=== PATIENT | female | born 1975 | race African-American/Black ===

== ENCOUNTER 2018-12-26 15:23 | Inpatient (IN) | payer OTHER ==
[2018-12-26 15:46] VITALS: BMI 18.8
--- NOTE | 2018-12-26 17:08 | HP ---
CIWA Score Nausea/Vomitin-No Nausea/No Vomiting Muscle Tremors: 4-Moderate,w/Arms Extend Anxiety: 4-Mod. Anxious/Guarded Agitation: 3 Paroxysmal Sweats: 3 (Increased facial moisture) Orientation: 0-Oriented Tacttile Disturbances: 0-None Auditory Disturbances: 0-None Visual Disturbances: 0-None Headache: 2-Mild CIWA-Ar Total Score: 16 - Admission Criteria OASAS Guidelines: Admission for Medically Managed Detox: Requires at least one of the followin. CIWA greater than 12 2. Seizures within the past 24 hours 3. Delirium tremens within the past 24 hours 4. Hallucinations within the past 24 hours 5. Acute intervention needed for co occurring medical disorder 6. Acute intervention needed for co occurring psychiatric disorder 7. Severe withdrawal that cannot be handled at a lower level of care (continued vomiting, continued diarrhea, abnormal vital signs) requiring intravenous medication and/or fluids 8. Patient presents the following: CIWA greater than 12 Admission Criteria Met: Admission criteria met Admission ROS S - [facility] Chief Complaint: Here to stop drugs Allergies/Adverse Reactions: Allergies Allergy/AdvReac Type Severity Reaction Status Date / Time No Known Allergies Allergy Verified 12/26/18 15:35 History of Present Illness: 43 yo presents alcohol withdrawal seeking detox. RUBEN: 0.0 HCG: Neg Utox: + THC/SHAHZAD Alcohol use began at age 14. Current use is 4-5 24 oz beers/day x 3 years. States gets anxiety and sweats when doesn't drink. Crack use began at age 24. Currently using $100+/day x 2 years Marijuana use began at age 14. Smokes 1-2 x/wk sometimes more. Nicotine @ 12. 1+ PPD Denies seizures, blackouts, overdoses. PMHx: Toothache; Fibroids w/ endometriosis; MHHx: Depression. Denies thoughts of harming self or others. SHx: Domiciled. Unemployed. Denies current legals. 9 years of sobriety ended in 2017. Search Terms: Drea Manley, 1975 Search Date: 12/26/2018 05:07:26 PM The Drug Utilization Report below displays all of the controlled substance prescriptions, if any, that your patient has filled in the last twelve months. The information displayed on this report is compiled from pharmacy submissions to the Department, and accurately reflects the information as submitted by the pharmacies. This report was requested by: Estella Enrique | Reference #: [id number] There are no results for the search terms that you entered. Exam Limitations: No Limitations - Ebola screening Have you traveled outside of the country in the last 21 days: No Have you had contact with anyone from an Ebola affected area: No Have you been sick,other than usual withdrawal symptoms: No Do you have a fever: No - Review of Systems Constitutional: Changes in sleep (Difficulty falling and stayinf asleep. No meds ), Unintentional Wgt. Loss EENT: reports: Blurred Vision, Dental Problems (Tooth ache.) Respiratory: reports: SOB with Exertion (Walking and climbing stairs) Cardiac: reports: No Symptoms Reported GI: reports: Constipated (Intermittent. Last BM 12/25), Indigestion (Heart burn) : reports: No Symptoms Reported Musculoskeletal: reports: Back Pain (Intermittent sharp back pain. Increases w/ walking. "0" now) Integumentary: reports: Lesions (On fingertips from smoking) Neuro: reports: Headache (Frontal achy headache) Endocrine: reports: Increased Thirst Hematology: reports: Anemia (Non compliant w/ iron pills), Easy Bleeding (when gets period) Psychiatric: reports: Orientated x3, Agitated, Anxious, Depressed (Denies thoughts of harming self or others.) Patient History - PPD History Previous Implant?: Yes Documented Results: Negative w/o proof Implanted On Prior R Admission?: No PPD to be Administered?: Yes - Reproductive History Patient is a Female of Child Bearing Age (11 -55 yrs old): Yes Last Menstrual Period: 11/28/18 Patient : No - Smoking Cessation Smoking history: Current every day smoker Have you smoked in the past 12 months: Yes Aproximately how many cigarettes per day: 20 Hx Chewing Tobacco Use: No Initiated information on smoking cessation: Yes 'Breaking Loose' booklet given: 12/26/18 - Substance & Tx. History Hx Alcohol Use: Yes Hx Substance Use: Yes Substance Use Type: Alcohol, Cocaine (Crack), Marijuana - Substances abused Alcohol Substance route: Oral Frequency: Daily Amount used: 6-7 beers Age of first use: 14 Date of last use: 12/26/18 Marijuana/Hashish Substance route: Smoking Frequency: 1-2 times per week Amount used: 2 joints Age of first use: 14 Date of last use: 12/26/18 Other Other (specify): vicodin Substance route: Oral Frequency: Daily Amount used: 1-2 pills Age of first use: 34 Date of last use: 12/19/18 Crack Substance route: Smoking Frequency: Daily Amount used: $100 Age of first use: 24 Date of last use: 12/26/18 Admission Physical Exam S - Vital Signs Vital Signs: Vital Signs - 24 hr 12/26/18 15:34 Temperature 97.2 F L Pulse Rate 79 Respiratory 18 Rate Blood Pressure 113/75 - Physical General Appearance: Yes: Mild Distress, Thin, Tremorous, Irritable, Sweating ( Increased facial moisture), Anxious HEENTM: Yes: Hearing grossly Normal, Normocephalic, Normal Voice, LESLIE, Pharynx Normal, Nasal Congestion, Other (Broken/missing teeth) Respiratory: Yes: Lungs Clear (Pulse Ox = 99 %), Normal Breath Sounds, No Respiratory Distress Neck: Yes: No masses,lesions,Nodules, Supple Breast: Yes: Breast Exam Deferred Cardiology: Yes: Regular Rhythm, Regular Rate (HR: 68), S1, S2 Abdominal: Yes: Non Tender, Flat, Soft, Increased Bowel Sounds Genitourinary: Yes: Within Normal Limits Back: Yes: Normal Inspection Musculoskeletal: Yes: full range of Motion, Gait Steady Extremities: Yes: Normal Capillary Refill, Tremors (Gross) Neurological: Yes: 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 intact, Fully Oriented, Alert, Motor Strength 5/5 Integumentary: Yes: Normal Color, Warm, Other (Cracked, healed marcos on fingertips) Lymphatic: Yes: Within Normal Limits - Diagnostic (1) Alcohol dependence with withdrawal, uncomplicated Current Visit: Yes Status: Acute (2) Cocaine dependence, uncomplicated Current Visit: Yes Status: Chronic (3) Nicotine dependence, unspecified, uncomplicated Current Visit: Yes Status: Chronic Qualifiers: Nicotine product type: cigarettes Qualified Code(s): F17.210 - Nicotine dependence, cigarettes, uncomplicated (4) History of endometriosis Current Visit: Yes Status: Chronic (5) Cannabis dependence, uncomplicated Current Visit: Yes Status: Chronic (6) Underweight due to inadequate caloric intake Current Visit: Yes Status: Chronic (7) Poor dentition Current Visit: Yes Status: Chronic (8) At risk for dehydration due to poor fluid intake Current Visit: Yes Status: Chronic Cleared for Admission [facility] - Detox or Rehab [facility] Level of Care: Medically Managed Detox Regimen/Protocol: Librium Claeared for Rehab Admission: No Breathalyzer - Breathalyzer Breathalyzer: 0 Urine Drug Screen - Test Device Lot number: [id number] Expiration date: 08/24/20 - Control Is test valid?: No - Results Drug screen NEGATIVE: No Urine drug screen results: THC-Marijuana, SHAHZAD-Cocaine Inpatient Rehab Admission - Rehab Decision to Admit Inpatient rehab admission?: No
[2018-12-26] MEDS ORDERED: ACETAMINOPHEN 325 MG TABLET (FP) PO PRN (18:43)
[2018-12-26] MEDS ORDERED: MAGNESIUM HYDROX 2400MG/30ML ORAL SUSPENSION 30 ML CUP PO PRN (18:43)
[2018-12-26] MEDS ORDERED: MENTHOL/PHENOL 1 EACH UD MM PRN (18:43)
[2018-12-26] MEDS ORDERED: NICOTINE POLACRILEX 2 MG GUM BUC PRN (18:43)
[2018-12-26] MEDS ORDERED: MAG HYDROX/AL HYDROX/SIMETH 30 ML UNIT-DOSE CUP PO PRN (18:43)
[2018-12-26] MEDS ORDERED: BISMUTH SUBSALICYLATE 524 MG/30 ML UD PO PRN (18:43)
[2018-12-26] MEDS ORDERED: MAGNESIUM CITRATE 300 ML BOTTLE PO PRN (18:43)
[2018-12-26] MEDS ORDERED: BENZOCAINE 20 % GEL TUBE MM PRN (18:46)
[2018-12-26] MEDS ORDERED: POLYETHYLENE GLYCOL 3350 119 GM BTL PO ONE (18:48)
[2018-12-26] MEDS: chlordiazePOXIDE HCL 10 MG CAPSULE PO PRN (20:01)
[2018-12-26] MEDS: IBUPROFEN 400 MG TABLET (FP) PO PRN (20:02)
[2018-12-26] MEDS: THIAMINE HCL 100 MG TABLET (FP) PO SCH (21:32)
[2018-12-26] MEDS: chlordiazePOXIDE HCL 25 MG CAPSULE PO SCH (21:32)
[2018-12-26] MEDS: DOCUSATE SODIUM 100 MG CAPSULE (FP) PO SCH (21:41)
[2018-12-27] MEDS: DOCUSATE SODIUM 100 MG CAPSULE (FP) PO SCH ×3 (05:50→22:44)
[2018-12-27] MEDS: chlordiazePOXIDE HCL 25 MG CAPSULE PO SCH ×3 (05:50→22:43)
[2018-12-27] MEDS: IBUPROFEN 400 MG TABLET (FP) PO PRN ×3 (06:45→18:52)
[2018-12-27 09:50] LABS: HEMATOCRIT 31.1 % (32.4-45.2); HEMOGLOBIN 9.4 GM/dL (10.7-15.3); MCHC 30.2 g/dl (32.0-36.0); MEAN CELL VOLUME 63.4 fl (80-96); MEAN PLT VOLUME 7.7 fl (7.5-11.1); PLATELET COUNT 496 K/MM3 (134-434); RBC 4.91 M/mm3 (3.60-5.2); RDW 21.4 % (11.6-15.6); WHITE BLOOD COUNT 8.3 K/mm3 (4.0-10.0)
[2018-12-27 09:56] LABS: MCH 19.1 pg (25.7-33.7)
[2018-12-27] MEDS: PRENATAL VITAMINS W/ FOLIC ACID TABLET (FP) PO SCH (10:36)
[2018-12-27] MEDS: NICOTINE 21 MG/24 HOURS TOPICAL PATCH TD SCH (10:36)
[2018-12-27 10:40] LABS: ALBUMIN 3.3 g/dl (3.4-5.0); BILIRUBIN,TOTAL 0.3 mg/dL (0.2-1); BLOOD UREA NITROGEN 20.7 mg/dL (7-18); CALCIUM 8.7 mg/dL (8.5-10.1); POTASSIUM 4.6 mmol/L (3.5-5.1); TOT PROT 6.9 g/dl (6.4-8.2)
[2018-12-27] MEDS ORDERED: PNEUMOCOCCAL 23 VACCINE 0.5 ML VIAL IM ONE (12:00)
[2018-12-27] MEDS ORDERED: PNEUMOC 13-VAL CONJ-DIP CRM/PF 0.5 ML DISP.SYRIN IM ONE (12:00)
[2018-12-27] MEDS ORDERED: FLU VACCINE QUAD 60 MCG/0.5 ML (MDV 19-20) IM ONE (12:00)
--- NOTE | 2018-12-27 12:47 | PN ---
S CIWA - CIWA Score Nausea/Vomitin-No Nausea/No Vomiting Muscle Tremors: 2 Anxiety: 3 Agitation: 2 Paroxysmal Sweats: 3 Orientation: 0-Oriented Tacttile Disturbances: 0-None Auditory Disturbances: 0-None Visual Disturbances: 0-None Headache: 2-Mild CIWA-Ar Total Score: 12 S Progress Note (SOAP) Subjective: c/o sweats, anxiety, headache, and shakes. Objective: 12/27/18 12:45 Vital Signs 12/27/18 12/27/18 06:16 09:11 Temperature 97.3 F L 97.6 F Pulse Rate 72 74 Respiratory 18 18 Rate Blood Pressure 142/97 110/65 Lab Results WBC 8.3 K/mm3 (4.0-10.0) 12/27/18 07:45 RBC 4.91 M/mm3 (3.60-5.2) 12/27/18 07:45 Hgb 9.4 GM/dL (10.7-15.3) L 12/27/18 07:45 Hct 31.1 % (32.4-45.2) L 12/27/18 07:45 MCV 63.4 fl (80-96) L 12/27/18 07:45 MCHC 30.2 g/dl (32.0-36.0) L 12/27/18 07:45 RDW 21.4 % (11.6-15.6) H 12/27/18 07:45 Plt Count 496 K/MM3 (134-434) H 12/27/18 07:45 Sodium 138 mmol/L (136-145) 12/27/18 07:45 Potassium 4.6 mmol/L (3.5-5.1) 12/27/18 07:45 Chloride 108 mmol/L (98-107) H 12/27/18 07:45 Carbon Dioxide 24 mmol/L (21-32) 12/27/18 07:45 Anion Gap 6 MMOL/L (8-16) L 12/27/18 07:45 BUN 20.7 mg/dL (7-18) H 12/27/18 07:45 Creatinine 1.0 mg/dL (0.55-1.3) 12/27/18 07:45 Random Glucose 119 mg/dL (74-106) H 12/27/18 07:45 Calcium 8.7 mg/dL (8.5-10.1) 12/27/18 07:45 Labs noted with low H&H, MCV, MCHC Elevated RDW and Plt count. Assessment: 12/27/18 12:48 AOX3, in no acute respiratory distress. Full ROM, ambulating in the unit. Withdrawal symptoms. CHILO. Plan: continue detox. ferrous sulfate 325mg po 3times/day Ascorbic acid 500mg po daily.
[2018-12-27] MEDS: ASCORBIC ACID 500 MG TABLET (FP) PO SCH (13:22)
[2018-12-27] MEDS: FERROUS SO4 325 MG TABLET (FP) PO SCH (17:56)
[2018-12-27] MEDS: chlordiazePOXIDE HCL 10 MG CAPSULE PO PRN (18:00)
[2018-12-27] MEDS: ACETAMINOPHEN 325 MG TABLET (FP) PO PRN (22:43)
[2018-12-27] MEDS: THIAMINE HCL 100 MG TABLET (FP) PO SCH (22:44)
[2018-12-27] MEDS: MELATONIN 5 MG TABLETS PO PRN (23:35)
[2018-12-28] MEDS: IBUPROFEN 400 MG TABLET (FP) PO PRN ×3 (03:04→19:09)
[2018-12-28] MEDS: chlordiazePOXIDE 5 MG CAPSULE PO SCH ×3 (06:16→20:24)
[2018-12-28] MEDS: DOCUSATE SODIUM 100 MG CAPSULE (FP) PO SCH ×3 (06:17→22:01)
[2018-12-28] MEDS: FERROUS SO4 325 MG TABLET (FP) PO SCH ×3 (08:34→19:08)
--- NOTE | 2018-12-28 09:10 | PN ---
[facility] CIWA - CIWA Score Nausea/Vomitin-Mild Nausea/No Vomiting Muscle Tremors: 2 Anxiety: 3 Agitation: 1-Slight > Activity Paroxysmal Sweats: 2 Orientation: 1-Uncertain about Date Tacttile Disturbances: 0-None Auditory Disturbances: 0-None Visual Disturbances: 0-None Headache: 0-None Present CIWA-Ar Total Score: 10 S Progress Note (SOAP) Subjective: 43 years old female admitted on 12/26/18 for alcohol withdrawal sx management treated with librium detox regimen patient tolerate well requests to be seen by a psychiatrist for long history of depression and anxiety psychiatrist referral [facility] teaching on sleep hygiene Objective: 12/28/18 09:09 Vital Signs Temperature 97.7 F 12/28/18 06:11 Pulse Rate 70 12/28/18 06:11 Respiratory Rate 16 12/28/18 06:11 Blood Pressure 108/64 12/28/18 06:11 O2 Sat by Pulse Oximetry (%) Laboratory Last Values WBC 8.3 K/mm3 (4.0-10.0) 12/27/18 07:45 RBC 4.91 M/mm3 (3.60-5.2) 12/27/18 07:45 Hgb 9.4 GM/dL (10.7-15.3) L 12/27/18 07:45 Hct 31.1 % (32.4-45.2) L 12/27/18 07:45 MCV 63.4 fl (80-96) L 12/27/18 07:45 MCH 19.1 pg (25.7-33.7) L 12/27/18 07:45 MCHC 30.2 g/dl (32.0-36.0) L 12/27/18 07:45 RDW 21.4 % (11.6-15.6) H 12/27/18 07:45 Plt Count 496 K/MM3 (134-434) H 12/27/18 07:45 MPV 7.7 fl (7.5-11.1) 12/27/18 07:45 Sodium 138 mmol/L (136-145) 12/27/18 07:45 Potassium 4.6 mmol/L (3.5-5.1) 12/27/18 07:45 Chloride 108 mmol/L (98-107) H 12/27/18 07:45 Carbon Dioxide 24 mmol/L (21-32) 12/27/18 07:45 Anion Gap 6 MMOL/L (8-16) L 12/27/18 07:45 BUN 20.7 mg/dL (7-18) H 12/27/18 07:45 Creatinine 1.0 mg/dL (0.55-1.3) 12/27/18 07:45 Est GFR (CKD-EPI)AfAm 78.79 12/27/18 07:45 Est GFR (CKD-EPI)NonAf 67.98 12/27/18 07:45 Random Glucose 119 mg/dL (74-106) H 12/27/18 07:45 Calcium 8.7 mg/dL (8.5-10.1) 12/27/18 07:45 Total Bilirubin 0.3 mg/dL (0.2-1) 12/27/18 07:45 AST 32 U/L (15-37) 12/27/18 07:45 ALT 33 U/L (13-61) 12/27/18 07:45 Alkaline Phosphatase 112 U/L (45-117) 12/27/18 07:45 Total Protein 6.9 g/dl (6.4-8.2) 12/27/18 07:45 Albumin 3.3 g/dl (3.4-5.0) L 12/27/18 07:45 RPR Titer Nonreactive (NONREACTIVE) 12/27/18 07:45 lab noted Assessment: 12/28/18 09:09 alcohol withdrawal sx depression and anxiety Plan: continue librium detox regimen
[2018-12-28] MEDS: PRENATAL VITAMINS W/ FOLIC ACID TABLET (FP) PO SCH (10:19)
[2018-12-28] MEDS: NICOTINE 21 MG/24 HOURS TOPICAL PATCH TD SCH (10:19)
[2018-12-28] MEDS: ASCORBIC ACID 500 MG TABLET (FP) PO SCH (10:19)
[2018-12-28] MEDS: chlordiazePOXIDE HCL 10 MG CAPSULE PO PRN ×2 (10:22→17:15)
[2018-12-28] MEDS: MELATONIN 5 MG TABLETS PO PRN (20:26)
[2018-12-28] MEDS: THIAMINE HCL 100 MG TABLET (FP) PO SCH (22:01)
[2018-12-29] MEDS ORDERED: chlordiazePOXIDE HCL 10 MG CAPSULE PO PRN
[2018-12-29] MEDS: IBUPROFEN 400 MG TABLET (FP) PO PRN ×3 (02:52→22:08)
[2018-12-29] MEDS: ACETAMINOPHEN 325 MG TABLET (FP) PO PRN ×2 (05:31→16:50)
[2018-12-29] MEDS: chlordiazePOXIDE HCL 10 MG CAPSULE PO SCH ×3 (05:31→22:05)
[2018-12-29] MEDS: DOCUSATE SODIUM 100 MG CAPSULE (FP) PO SCH ×3 (05:32→22:05)
[2018-12-29] MEDS: FERROUS SO4 325 MG TABLET (FP) PO SCH ×3 (07:21→17:44)
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
[2018-12-29] MEDS: hydrOXYzine PAMOATE 50 MG CAPSULE (FP) PO PRN ×3 (09:33→22:07)
[2018-12-29 09:47] LABS: EPI CELLS 5.5 /HPF (0-5/HPF); HYALINE CASTS 5 /lpf (0-8); URINE APPEARANCE CLOUDY; URINE BILIRUBIN NEGATIVE (NEGATIVE); URINE COLOR ORANGE; URINE GLUCOSE (UA) NEGATIVE (NEGATIVE); URINE KETONE NEGATIVE (NEGATIVE); URINE LEUK ESTERASE 2+ (NEGATIVE); URINE NITRITE NEGATIVE (NEGATIVE); URINE PROTEIN 1+ (NEGATIVE); URINE RBC 4329 /hpf (0-4); URINE UROBILINOGEN 0.2 mg/dL (0.2-1.0); URINE WBC 17 /hpf (0-5)
[2018-12-29] MEDS: PRENATAL VITAMINS W/ FOLIC ACID TABLET (FP) PO SCH (10:40)
[2018-12-29] MEDS: ASCORBIC ACID 500 MG TABLET (FP) PO SCH (10:40)
[2018-12-29] MEDS: NICOTINE 21 MG/24 HOURS TOPICAL PATCH TD SCH (10:41)
--- NOTE | 2018-12-29 11:05 | EKG ---
Test Reason : Blood Pressure : / mmHG Vent. Rate : 070 BPM Atrial Rate : 070 BPM P-R Int : 140 ms QRS Dur : 082 ms QT Int : 426 ms P-R-T Axes : 077 058 055 degrees QTc Int : 460 ms NORMAL SINUS RHYTHM WITH SINUS ARRHYTHMIA NORMAL ECG WHEN COMPARED WITH ECG OF 06-MAY-2008 08:50, NO SIGNIFICANT CHANGE WAS FOUND Confirmed by SAVANNAH PLUMMER MD ([id number]) on 12/29/2018 11:04:47 AM Referred By: Confirmed By:SAVANNAH PLUMMER MD
--- NOTE | 2018-12-29 15:10 | PN ---
S CIWA - CIWA Score Nausea/Vomitin-No Nausea/No Vomiting Muscle Tremors: 2 Anxiety: 1-Mildly Anxious Agitation: 1-Slight > Activity Paroxysmal Sweats: 1-Minimal Palms Moist Orientation: 0-Oriented Tacttile Disturbances: 0-None Auditory Disturbances: 0-None Visual Disturbances: 0-None Headache: 0-None Present CIWA-Ar Total Score: 5 BHS Progress Note (SOAP) Subjective: 43 years old female admitted on 12/26/18 for alcohol withdrawal sx management treated with librium detox regimen patient tolerated well feeling better sleep through out the night Objective: 12/29/18 15:09 Vital Signs Temperature 97.3 F L 12/29/18 13:20 Pulse Rate 76 12/29/18 13:20 Respiratory Rate 16 12/29/18 13:20 Blood Pressure 106/60 12/29/18 13:20 O2 Sat by Pulse Oximetry (%) Laboratory Last Values WBC 8.3 K/mm3 (4.0-10.0) 12/27/18 07:45 RBC 4.91 M/mm3 (3.60-5.2) 12/27/18 07:45 Hgb 9.4 GM/dL (10.7-15.3) L 12/27/18 07:45 Hct 31.1 % (32.4-45.2) L 12/27/18 07:45 MCV 63.4 fl (80-96) L 12/27/18 07:45 MCH 19.1 pg (25.7-33.7) L 12/27/18 07:45 MCHC 30.2 g/dl (32.0-36.0) L 12/27/18 07:45 RDW 21.4 % (11.6-15.6) H 12/27/18 07:45 Plt Count 496 K/MM3 (134-434) H 12/27/18 07:45 MPV 7.7 fl (7.5-11.1) 12/27/18 07:45 Sodium 138 mmol/L (136-145) 12/27/18 07:45 Potassium 4.6 mmol/L (3.5-5.1) 12/27/18 07:45 Chloride 108 mmol/L (98-107) H 12/27/18 07:45 Carbon Dioxide 24 mmol/L (21-32) 12/27/18 07:45 Anion Gap 6 MMOL/L (8-16) L 12/27/18 07:45 BUN 20.7 mg/dL (7-18) H 12/27/18 07:45 Creatinine 1.0 mg/dL (0.55-1.3) 12/27/18 07:45 Est GFR (CKD-EPI)AfAm 78.79 12/27/18 07:45 Est GFR (CKD-EPI)NonAf 67.98 12/27/18 07:45 Random Glucose 119 mg/dL (74-106) H 12/27/18 07:45 Calcium 8.7 mg/dL (8.5-10.1) 12/27/18 07:45 Total Bilirubin 0.3 mg/dL (0.2-1) 12/27/18 07:45 AST 32 U/L (15-37) 12/27/18 07:45 ALT 33 U/L (13-61) 12/27/18 07:45 Alkaline Phosphatase 112 U/L (45-117) 12/27/18 07:45 Total Protein 6.9 g/dl (6.4-8.2) 12/27/18 07:45 Albumin 3.3 g/dl (3.4-5.0) L 12/27/18 07:45 Urine Color [place] 12/29/18 08:00 Urine Appearance Cloudy 12/29/18 08:00 Urine pH 5.0 (5.0-8.0) 12/29/18 08:00 Ur Specific [place] 1.014 (1.010-1.035) 12/29/18 08:00 Urine Protein 1+ (NEGATIVE) H 12/29/18 08:00 Urine Glucose (UA) Negative (NEGATIVE) 12/29/18 08:00 Urine Ketones Negative (NEGATIVE) 12/29/18 08:00 Urine Blood 3+ (NEGATIVE) H 12/29/18 08:00 Urine Nitrite Negative (NEGATIVE) 12/29/18 08:00 Urine Bilirubin Negative (NEGATIVE) 12/29/18 08:00 Urine Urobilinogen 0.2 mg/dL (0.2-1.0) 12/29/18 08:00 Ur Leukocyte Esterase 2+ (NEGATIVE) H 12/29/18 08:00 Urine WBC (Auto) 17 /hpf (0-5) 12/29/18 08:00 Urine RBC (Auto) 4329 /hpf (0-4) 12/29/18 08:00 Urine Casts (Auto) 5 /lpf (0-8) 12/29/18 08:00 U Epithel Cells (Auto) 5.5 /HPF (0-5/HPF) 12/29/18 08:00 Urine Bacteria (Auto) 5.0 /hpf (NEGATIVE) 12/29/18 08:00 POC Urine HCG, Qual Negative 12/26/18 16:32 RPR Titer Nonreactive (NONREACTIVE) 12/27/18 07:45 lab noted Assessment: 12/29/18 15:10 alcohol withdrawal sx Plan: continue librium detox regimen
[2018-12-29] MEDS: THIAMINE HCL 100 MG TABLET (FP) PO SCH (22:05)
[2018-12-29] MEDS: MELATONIN 5 MG TABLETS PO PRN (22:10)
[2018-12-30] MEDS ORDERED: chlordiazePOXIDE HCL 10 MG CAPSULE PO ONE (05:00)
[2018-12-30] MEDS: DOCUSATE SODIUM 100 MG CAPSULE (FP) PO SCH (06:08)
[2018-12-30] MEDS: FERROUS SO4 325 MG TABLET (FP) PO SCH ×2 (07:28→11:47)
--- NOTE | 2018-12-30 09:06 | DS ---
[facility] Detox Discharge Summary Admission Date: 12/26/18 Discharge Date: 12/30/18 - History Present History: Alcohol Dependence Additional Comments: 43 years old female admitted on 12/26/18 for alcohol withdrawal sx management treated with librium detox regimen patient tolerated well patient is alert oriented x 3 speech clearly coherently respiratory clear lung bilaterally on Auscultation abdomen soft no rebound tenderness extremities full range of motion - Physical Exam Results Vital Signs: Vital Signs Temperature 97.1 F L 12/30/18 06:23 Pulse Rate 67 12/30/18 06:23 Respiratory Rate 16 12/30/18 06:23 Blood Pressure 98/57 L 12/30/18 06:23 O2 Sat by Pulse Oximetry (%) Pertinent Admission Physical Exam Findings: alcohol withdrawal sx Laboratory Last Values WBC 8.3 K/mm3 (4.0-10.0) 12/27/18 07:45 RBC 4.91 M/mm3 (3.60-5.2) 12/27/18 07:45 Hgb 9.4 GM/dL (10.7-15.3) L 12/27/18 07:45 Hct 31.1 % (32.4-45.2) L 12/27/18 07:45 MCV 63.4 fl (80-96) L 12/27/18 07:45 MCH 19.1 pg (25.7-33.7) L 12/27/18 07:45 MCHC 30.2 g/dl (32.0-36.0) L 12/27/18 07:45 RDW 21.4 % (11.6-15.6) H 12/27/18 07:45 Plt Count 496 K/MM3 (134-434) H 12/27/18 07:45 MPV 7.7 fl (7.5-11.1) 12/27/18 07:45 Sodium 138 mmol/L (136-145) 12/27/18 07:45 Potassium 4.6 mmol/L (3.5-5.1) 12/27/18 07:45 Chloride 108 mmol/L (98-107) H 12/27/18 07:45 Carbon Dioxide 24 mmol/L (21-32) 12/27/18 07:45 Anion Gap 6 MMOL/L (8-16) L 12/27/18 07:45 BUN 20.7 mg/dL (7-18) H 12/27/18 07:45 Creatinine 1.0 mg/dL (0.55-1.3) 12/27/18 07:45 Est GFR (CKD-EPI)AfAm 78.79 12/27/18 07:45 Est GFR (CKD-EPI)NonAf 67.98 12/27/18 07:45 Random Glucose 119 mg/dL (74-106) H 12/27/18 07:45 Calcium 8.7 mg/dL (8.5-10.1) 12/27/18 07:45 Total Bilirubin 0.3 mg/dL (0.2-1) 12/27/18 07:45 AST 32 U/L (15-37) 12/27/18 07:45 ALT 33 U/L (13-61) 12/27/18 07:45 Alkaline Phosphatase 112 U/L (45-117) 12/27/18 07:45 Total Protein 6.9 g/dl (6.4-8.2) 12/27/18 07:45 Albumin 3.3 g/dl (3.4-5.0) L 12/27/18 07:45 Urine Color [place] 12/29/18 08:00 Urine Appearance Cloudy 12/29/18 08:00 Urine pH 5.0 (5.0-8.0) 12/29/18 08:00 Ur Specific [place] 1.014 (1.010-1.035) 12/29/18 08:00 Urine Protein 1+ (NEGATIVE) H 12/29/18 08:00 Urine Glucose (UA) Negative (NEGATIVE) 12/29/18 08:00 Urine Ketones Negative (NEGATIVE) 12/29/18 08:00 Urine Blood 3+ (NEGATIVE) H 12/29/18 08:00 Urine Nitrite Negative (NEGATIVE) 12/29/18 08:00 Urine Bilirubin Negative (NEGATIVE) 12/29/18 08:00 Urine Urobilinogen 0.2 mg/dL (0.2-1.0) 12/29/18 08:00 Ur Leukocyte Esterase 2+ (NEGATIVE) H 12/29/18 08:00 Urine WBC (Auto) 17 /hpf (0-5) 12/29/18 08:00 Urine RBC (Auto) 4329 /hpf (0-4) 12/29/18 08:00 Urine Casts (Auto) 5 /lpf (0-8) 12/29/18 08:00 U Epithel Cells (Auto) 5.5 /HPF (0-5/HPF) 12/29/18 08:00 Urine Bacteria (Auto) 5.0 /hpf (NEGATIVE) 12/29/18 08:00 POC Urine HCG, Qual Negative 12/26/18 16:32 RPR Titer Nonreactive (NONREACTIVE) 12/27/18 07:45 lab noted uti hematuria begin bactrim ds - Treatment Hospital Course: Detox Protocol Followed, Detoxed Safely, Responded well, Discharged Condition Good, Rehab Referral Accepted Patient has Accepted a Rehab Referral to: [facility] - Medication Discharge Medications: Ambulatory Orders NK [No Known Home Medication] 12/26/18 - Diagnosis (1) UTI (urinary tract infection) Current Visit: Yes Status: Chronic Qualifiers: Urinary tract infection type: site unspecified Hematuria presence: with hematuria Qualified Code(s): N39.0 - Urinary tract infection, site not specified; R31.9 - Hematuria, unspecified (2) Alcohol dependence with withdrawal, uncomplicated Current Visit: Yes Status: Acute (3) Substance induced mood disorder Current Visit: Yes Status: Suspected (4) Nicotine dependence, unspecified, uncomplicated Current Visit: Yes Status: Acute Qualifiers: Nicotine product type: cigarettes Qualified Code(s): F17.210 - Nicotine dependence, cigarettes, uncomplicated (5) Underweight due to inadequate caloric intake Current Visit: Yes Status: Acute - AMA Did Patient Leave Against Medical Advice: No CIWA Score - CIWA Score Nausea/Vomitin-No Nausea/No Vomiting Muscle Tremors: 1-None Visible, but [place] Anxiety: 0-No Anxiety, at Ease Agitation: 0-Normal Activity Paroxysmal Sweats: No Perspiration Orientation: 0-Oriented Tacttile Disturbances: 0-None Auditory Disturbances: 0-None Visual Disturbances: 0-None Headache: 0-None Present CIWA-Ar Total Score: 1
[2018-12-30] MEDS ORDERED: SULFAMETHOXAZOLE/TRIMETHOPRIM 800MG/160MG D.S. TABLET PO SCH (10:00)
[2018-12-30] MEDS: NICOTINE 21 MG/24 HOURS TOPICAL PATCH TD SCH (11:02)
[2018-12-30] MEDS: PRENATAL VITAMINS W/ FOLIC ACID TABLET (FP) PO SCH (11:02)
[2018-12-30] MEDS: ASCORBIC ACID 500 MG TABLET (FP) PO SCH (11:02)
[2018-12-30] MEDS: hydrOXYzine PAMOATE 50 MG CAPSULE (FP) PO PRN (11:04)
[2018-12-30] MEDS: IBUPROFEN 400 MG TABLET (FP) PO PRN (11:05)
[2018-12-30 13:22] VITALS: BP 125/82; PULSE 84; TEMP 98
== END 2018-12-30 13:07 | disposition other institution (70) | DRG 773 ==
LOC: YASAS 15:23 → Y3N 19:38
PROVIDERS: ADMIT Allergy & Immunology; ATTEND Allergy & Immunology
PROC: HZ2ZZZZ Detoxification Services for Substance Abuse Treatment (ICD-10-PCS; principal; 2018-12-26)
DX: F10.230 Alcohol dependence with withdrawal, uncomplicated (principal); F14.20 Cocaine dependence, uncomplicated; F12.20 Cannabis dependence, uncomplicated; F11.10 Opioid abuse, uncomplicated; F17.210 Nicotine dependence, cigarettes, uncomplicated; F19.24 Other psychoactive substance dependence with psychoactive substance-induced mood disorder; F19.282 Other psychoactive substance dependence with psychoactive substance-induced sleep disorder; F39 Unspecified mood [affective] disorder; F41.9 Anxiety disorder, unspecified; F32.9 Major depressive disorder, single episode, unspecified; N39.0 Urinary tract infection, site not specified; D50.9 Iron deficiency anemia, unspecified; R63.8 Other symptoms and signs concerning food and fluid intake; K08.9 Disorder of teeth and supporting structures, unspecified; R63.6 Underweight; Z68.1 Body mass index [BMI] 19.9 or less, adult; Z62.810 Personal history of physical and sexual abuse in childhood; Z56.0 Unemployment, unspecified
CPT/HCPCS: 36415; 80053; 81003; 81025; 85027; 86593; 90732; 93005; 93010; G0009; Q2036

== ENCOUNTER 2018-12-30 12:45 | Inpatient (IN) | payer OTHER ==
--- NOTE | 2018-12-30 11:23 | HP ---
[facility] Re[facility] Assess/Revision - Admission History Admitted to Rehab from: [facility] Date of Admission to Rehab: 12/30/18 - Findings Detox History & Physical reviewed: Yes Concur with findings: Yes Comments/Additional Findings: trasnferred from detox to rehab admission as per protocol Inpatient Rehab Admission - Rehab Decision to Admit Inpatient rehab admission?: Yes - Initial Determination Are CD services needed?: Yes Free of communicable disease: Yes Not in need of hospitalization: Yes - Rehab Admission Criteria Previous failed treatment: Yes Poor recovery environment: Yes Comorbidities: Yes Lacks judgement: Yes Patient is meeting Inpatient Rehab admission criteria:: Yes
[~2018-12-30 12:45] MED LIST: ACETAMINOPHEN 325 MG TABLET (FP) PO PRN; LIDOCAINE VISCOUS 2% ORAL/TOP 20 ML UNIT-DOSE CUP MM PRN; LOPERAMIDE HCL 2 MG CAPSULE PO PRN; MAGNESIUM CITRATE 300 ML BOTTLE PO PRN; MAGNESIUM HYDROX 2400MG/30ML ORAL SUSPENSION 30 ML CUP PO PRN; MENTHOL/PHENOL 1 EACH UD MM PRN; NICOTINE POLACRILEX 2 MG GUM BUC PRN; P-EPHED 60MG/TRIPROLIDI 2.5MG TABLET PO PRN; guaiFENesin 200 MG/10 ML 10 ML UNIT-DOSE CUPS PO PRN
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
[2018-12-30] MEDS: DOCUSATE SODIUM 100 MG CAPSULE (FP) PO SCH ×2 (15:01→21:21)
[2018-12-30] MEDS: IBUPROFEN 400 MG TABLET (FP) PO PRN (15:02)
[2018-12-30] MEDS: hydrOXYzine PAMOATE 50 MG CAPSULE (FP) PO PRN ×2 (15:05→20:04)
[2018-12-30] MEDS: MAG HYDROX/AL HYDROX/SIMETH 30 ML UNIT-DOSE CUP PO PRN (20:47)
[2018-12-30] MEDS: SULFAMETHOXAZOLE/TRIMETHOPRIM 800MG/160MG D.S. TABLET PO SCH (21:21)
[2018-12-30] MEDS: THIAMINE HCL 100 MG TABLET (FP) PO SCH (21:21)
[2018-12-30] MEDS: QUEtiapine FUMARATE 100 MG TABLET (FP) PO SCH (21:21)
[2018-12-30] MEDS: MELATONIN 5 MG TABLETS PO PRN (21:21)
[2018-12-31] MEDS: DOCUSATE SODIUM 100 MG CAPSULE (FP) PO SCH ×3 (06:21→21:19)
[2018-12-31] MEDS: hydrOXYzine PAMOATE 50 MG CAPSULE (FP) PO PRN ×3 (06:22→21:19)
[2018-12-31] MEDS: FERROUS SO4 325 MG TABLET (FP) PO SCH (07:19)
[2018-12-31] MEDS: IBUPROFEN 400 MG TABLET (FP) PO PRN (08:32)
[2018-12-31] MEDS ORDERED: PT OWN MED DRAWER 7, Y5N ONE (08:53)
[2018-12-31] MEDS: NICOTINE 21 MG/24 HOURS TOPICAL PATCH TD SCH (10:03)
[2018-12-31] MEDS: PRENATAL VITAMINS W/ FOLIC ACID TABLET (FP) PO SCH (10:03)
[2018-12-31] MEDS: SULFAMETHOXAZOLE/TRIMETHOPRIM 800MG/160MG D.S. TABLET PO SCH ×2 (10:03→21:18)
[2018-12-31] MEDS: ASCORBIC ACID 500 MG TABLET (FP) PO SCH (12:02)
[2018-12-31] MEDS: THIAMINE HCL 100 MG TABLET (FP) PO SCH (21:18)
[2018-12-31] MEDS: MELATONIN 5 MG TABLETS PO PRN (21:18)
[2018-12-31] MEDS: QUEtiapine FUMARATE 100 MG TABLET (FP) PO SCH (21:19)
[2019-01-01] MEDS: IBUPROFEN 400 MG TABLET (FP) PO PRN ×3 (00:39→21:09)
[2019-01-01] MEDS: DOCUSATE SODIUM 100 MG CAPSULE (FP) PO SCH ×3 (06:06→21:07)
[2019-01-01] MEDS: hydrOXYzine PAMOATE 50 MG CAPSULE (FP) PO PRN ×3 (06:07→21:08)
[2019-01-01] MEDS: FERROUS SO4 325 MG TABLET (FP) PO SCH (07:45)
[2019-01-01] MEDS: SULFAMETHOXAZOLE/TRIMETHOPRIM 800MG/160MG D.S. TABLET PO SCH ×2 (10:24→21:08)
[2019-01-01] MEDS: ASCORBIC ACID 500 MG TABLET (FP) PO SCH (10:24)
[2019-01-01] MEDS: PRENATAL VITAMINS W/ FOLIC ACID TABLET (FP) PO SCH (10:24)
[2019-01-01] MEDS: NICOTINE 21 MG/24 HOURS TOPICAL PATCH TD SCH (10:25)
[2019-01-01] MEDS: BENZOCAINE 20 % GEL TUBE MM PRN (10:27)
[2019-01-01] MEDS: THIAMINE HCL 100 MG TABLET (FP) PO SCH (21:07)
[2019-01-01] MEDS: MELATONIN 5 MG TABLETS PO PRN (21:07)
[2019-01-01] MEDS: QUEtiapine FUMARATE 100 MG TABLET (FP) PO SCH (21:07)
[2019-01-02] MEDS: DOCUSATE SODIUM 100 MG CAPSULE (FP) PO SCH ×3 (07:02→21:23)
[2019-01-02] MEDS: hydrOXYzine PAMOATE 50 MG CAPSULE (FP) PO PRN ×4 (07:02→21:23)
[2019-01-02] MEDS: FERROUS SO4 325 MG TABLET (FP) PO SCH (07:17)
--- NOTE | 2019-01-02 09:53 | PN ---
[facility] Progress Note Note: Laboratory Tests 12/31/18 08:15 HIV 1&2 Antibody Screen Negative HIV P24 Antigen Negative Vital Signs Temperature 97.6 F 01/02/19 07:36 Pulse Rate 66 01/02/19 07:36 Respiratory Rate 18 01/02/19 07:36 Blood Pressure 108/64 01/02/19 07:36 O2 Sat by Pulse Oximetry (%) UA from 12/29/18 + blood, will repeat UA in am (H/P states LMP 11/28/18). Patient also requesting Hepatitis C testing, HCV test ordered.
[2019-01-02] MEDS: ASCORBIC ACID 500 MG TABLET (FP) PO SCH (10:05)
[2019-01-02] MEDS: PRENATAL VITAMINS W/ FOLIC ACID TABLET (FP) PO SCH (10:05)
[2019-01-02] MEDS: SULFAMETHOXAZOLE/TRIMETHOPRIM 800MG/160MG D.S. TABLET PO SCH ×2 (10:05→21:23)
[2019-01-02] MEDS: NICOTINE 21 MG/24 HOURS TOPICAL PATCH TD SCH (10:05)
[2019-01-02] MEDS: BENZOCAINE 20 % GEL TUBE MM PRN (11:27)
--- NOTE | 2019-01-02 12:04 | PN ---
[facility] Progress Note Note: Patient complains of experiencing difficulty to sleep despite taking Seroquel 100 mg/hs and Melatonin 5 mg/hs. Will increase Melatonin dosage to 10 mg/hs prn for insomnia
[2019-01-02 15:48] LABS: EPI CELLS 16.7 /HPF (0-5/HPF); HYALINE CASTS 10 /lpf (0-8); PH,URINE 6.5 (5.0-8.0); URINE APPEARANCE CLOUDY; URINE BACTERIA 126.6 /hpf (NEGATIVE); URINE BILIRUBIN NEGATIVE (NEGATIVE); URINE COLOR YELLOW; URINE GLUCOSE (UA) NEGATIVE (NEGATIVE); URINE KETONE NEGATIVE (NEGATIVE); URINE LEUK ESTERASE TRACE (NEGATIVE); URINE NITRITE NEGATIVE (NEGATIVE); URINE PROTEIN NEGATIVE (NEGATIVE); URINE UROBILINOGEN 0.2 mg/dL (0.2-1.0); URINE WBC 8 /hpf (0-5)
[2019-01-02 17:17] LABS: YEAST NONE SEEN (NEGATIVE)
[2019-01-02] MEDS: MELATONIN 5 MG TABLETS PO PRN (21:23)
[2019-01-02] MEDS: QUEtiapine FUMARATE 100 MG TABLET (FP) PO SCH (21:23)
[2019-01-02] MEDS: THIAMINE HCL 100 MG TABLET (FP) PO SCH (21:23)
[2019-01-02] MEDS: IBUPROFEN 400 MG TABLET (FP) PO PRN (21:24)
[2019-01-03] MEDS: hydrOXYzine PAMOATE 50 MG CAPSULE (FP) PO PRN ×5 (02:10→21:49)
[2019-01-03] MEDS: DOCUSATE SODIUM 100 MG CAPSULE (FP) PO SCH ×3 (06:25→21:04)
[2019-01-03] MEDS: IBUPROFEN 400 MG TABLET (FP) PO PRN ×2 (06:26→21:04)
[2019-01-03] MEDS: BENZOCAINE 20 % GEL TUBE MM PRN (06:30)
[2019-01-03] MEDS: FERROUS SO4 325 MG TABLET (FP) PO SCH (07:07)
[2019-01-03] MEDS ORDERED: PT OWN MED DRAWER 7, Y5N ONE (09:19)
[2019-01-03] MEDS: PRENATAL VITAMINS W/ FOLIC ACID TABLET (FP) PO SCH (10:31)
[2019-01-03] MEDS: NICOTINE 21 MG/24 HOURS TOPICAL PATCH TD SCH (10:31)
[2019-01-03] MEDS: ASCORBIC ACID 500 MG TABLET (FP) PO SCH (10:31)
[2019-01-03] MEDS: SULFAMETHOXAZOLE/TRIMETHOPRIM 800MG/160MG D.S. TABLET PO SCH ×2 (10:32→21:04)
[2019-01-03] MEDS: THIAMINE HCL 100 MG TABLET (FP) PO SCH (21:04)
[2019-01-03] MEDS: QUEtiapine FUMARATE 100 MG TABLET (FP) PO SCH (21:04)
[2019-01-03] MEDS: MELATONIN 5 MG TABLETS PO PRN (21:04)
[2019-01-04] MEDS: DOCUSATE SODIUM 100 MG CAPSULE (FP) PO SCH ×3 (07:00→21:24)
[2019-01-04] MEDS: hydrOXYzine PAMOATE 50 MG CAPSULE (FP) PO PRN ×3 (07:01→21:24)
[2019-01-04] MEDS: FERROUS SO4 325 MG TABLET (FP) PO SCH (07:01)
[2019-01-04] MEDS: IBUPROFEN 400 MG TABLET (FP) PO PRN (10:18)
[2019-01-04] MEDS: PRENATAL VITAMINS W/ FOLIC ACID TABLET (FP) PO SCH (10:19)
[2019-01-04] MEDS: SULFAMETHOXAZOLE/TRIMETHOPRIM 800MG/160MG D.S. TABLET PO SCH ×2 (10:19→21:24)
[2019-01-04] MEDS: ASCORBIC ACID 500 MG TABLET (FP) PO SCH (10:19)
[2019-01-04] MEDS: NICOTINE 21 MG/24 HOURS TOPICAL PATCH TD SCH (10:19)
[2019-01-04] MEDS: THIAMINE HCL 100 MG TABLET (FP) PO SCH (21:23)
[2019-01-04] MEDS: QUEtiapine FUMARATE 100 MG TABLET (FP) PO SCH (21:24)
[2019-01-04] MEDS: MELATONIN 5 MG TABLETS PO PRN (21:24)
[2019-01-05] MEDS: hydrOXYzine PAMOATE 50 MG CAPSULE (FP) PO PRN ×4 (04:45→21:18)
[2019-01-05] MEDS: IBUPROFEN 400 MG TABLET (FP) PO PRN ×2 (04:45→17:44)
[2019-01-05] MEDS: DOCUSATE SODIUM 100 MG CAPSULE (FP) PO SCH ×3 (07:22→21:18)
[2019-01-05] MEDS: FERROUS SO4 325 MG TABLET (FP) PO SCH (07:23)
[2019-01-05] MEDS ORDERED: PT OWN MED DRAWER 7, Y5N ONE (09:09)
[2019-01-05] MEDS: NICOTINE 21 MG/24 HOURS TOPICAL PATCH TD SCH (10:10)
[2019-01-05] MEDS: ASCORBIC ACID 500 MG TABLET (FP) PO SCH (10:10)
[2019-01-05] MEDS: PRENATAL VITAMINS W/ FOLIC ACID TABLET (FP) PO SCH (10:10)
--- NOTE | 2019-01-05 12:37 | PN ---
[facility] Progress Note Note: lab review Laboratory Tests 12/31/18 01/02/19 01/03/19 08:15 11:50 05:40 Urine Color Yellow Urine Appearance Cloudy Urine pH 6.5 D Ur Specific [place] 1.024 Urine Protein Negative Urine Glucose (UA) Negative Urine Ketones Negative Urine Blood 3+ H Urine Nitrite Negative Urine Bilirubin Negative Urine Urobilinogen 0.2 Ur Leukocyte Esterase Trace Urine WBC (Auto) 8 Urine RBC (Auto) 20.0 Urine Casts (Auto) 10 U Pathogenic Cast Auto None seen U Epithel Cells (Auto) 16.7 Urine Bacteria (Auto) 126.6 Urine Yeast (Auto) None seen Hep C Ab Diagnostic 0.1 HIV 1&2 Antibody Screen Negative HIV P24 Antigen Negative Repeat UA.
[2019-01-05] MEDS: MAG HYDROX/AL HYDROX/SIMETH 30 ML UNIT-DOSE CUP PO PRN (17:04)
--- NOTE | 2019-01-05 19:33 | PN ---
[facility] Progress Note Note: Laboratory Tests 12/31/18 01/02/19 01/03/19 08:15 11:50 05:40 Urine Color Yellow Urine Appearance Cloudy Urine pH 6.5 D Ur Specific [place] 1.024 Urine Protein Negative Urine Glucose (UA) Negative Urine Ketones Negative Urine Blood 3+ H Urine Nitrite Negative Urine Bilirubin Negative Urine Urobilinogen 0.2 Ur Leukocyte Esterase Trace Urine WBC (Auto) 8 Urine RBC (Auto) 20.0 Urine Casts (Auto) 10 U Pathogenic Cast Auto None seen U Epithel Cells (Auto) 16.7 Urine Bacteria (Auto) 126.6 Urine Yeast (Auto) None seen Hep C Ab Diagnostic 0.1 HIV 1&2 Antibody Screen Negative HIV P24 Antigen Negative Patient informed of Hep C and HIV results.
[2019-01-05] MEDS: THIAMINE HCL 100 MG TABLET (FP) PO SCH (21:18)
[2019-01-05] MEDS: MELATONIN 5 MG TABLETS PO PRN (21:19)
[2019-01-05] MEDS: QUEtiapine FUMARATE 100 MG TABLET (FP) PO SCH (21:19)
[2019-01-06] MEDS: hydrOXYzine PAMOATE 50 MG CAPSULE (FP) PO PRN ×4 (06:39→21:04)
[2019-01-06] MEDS: DOCUSATE SODIUM 100 MG CAPSULE (FP) PO SCH ×3 (06:39→21:03)
[2019-01-06] MEDS: IBUPROFEN 400 MG TABLET (FP) PO PRN (06:39)
[2019-01-06] MEDS: FERROUS SO4 325 MG TABLET (FP) PO SCH (07:16)
[2019-01-06] MEDS: ASCORBIC ACID 500 MG TABLET (FP) PO SCH (10:21)
[2019-01-06] MEDS: NICOTINE 21 MG/24 HOURS TOPICAL PATCH TD SCH (10:21)
[2019-01-06] MEDS: PRENATAL VITAMINS W/ FOLIC ACID TABLET (FP) PO SCH (10:21)
--- NOTE | 2019-01-06 14:36 | PREP.REFER ---
HIV PrEP/PEP - PrEP HIV Risk Assessment When was your last HIV test?: 12/31/18 HIV Test offered: Accepted Are you concerned about any sexual encounters past 6 months?: No Have you had a STI in the last 6 months?: No Have you shared needles or other equipment?: No Are you interested in daily medication to help prevent HIV?: No Recommendation: None at this time Comment: Pt reports in a long relationship with one partner.
[2019-01-06] MEDS: THIAMINE HCL 100 MG TABLET (FP) PO SCH (21:03)
[2019-01-06] MEDS: QUEtiapine FUMARATE 100 MG TABLET (FP) PO SCH (21:03)
[2019-01-06] MEDS: MELATONIN 5 MG TABLETS PO PRN (21:03)
[2019-01-07] MEDS: hydrOXYzine PAMOATE 50 MG CAPSULE (FP) PO PRN (03:42)
[2019-01-07] MEDS: IBUPROFEN 400 MG TABLET (FP) PO PRN (06:22)
[2019-01-07] MEDS: DOCUSATE SODIUM 100 MG CAPSULE (FP) PO SCH (06:22)
[2019-01-07 07:05] VITALS: BP 120/75; PULSE 73; TEMP 97.8
--- NOTE | 2019-01-07 07:07 | PN ---
[facility] Progress Note Note: Patient is discharged today.Script for 30 days supply of Seroquel 100 mg/hs is electronically transmitted to [facility] at [address] [place] [id number]
[2019-01-07] MEDS: FERROUS SO4 325 MG TABLET (FP) PO SCH (07:09)
== END 2019-01-07 07:25 | disposition home or self-care (01) | DRG 772 ==
LOC: YASAS 12:45 → Y3W 12:46 → Y3E 01-03 19:46
PROVIDERS: ADMIT Neuromusculoskeletal Medicine & OMM; ATTEND Neuromusculoskeletal Medicine & OMM
PROC: HZ42ZZZ Group Counseling for Substance Abuse Treatment, Cognitive-Behavioral (ICD-10-PCS; principal; 2018-12-30)
DX: F10.20 Alcohol dependence, uncomplicated (principal); F14.20 Cocaine dependence, uncomplicated; F12.20 Cannabis dependence, uncomplicated; F11.10 Opioid abuse, uncomplicated; F17.210 Nicotine dependence, cigarettes, uncomplicated; F43.10 Post-traumatic stress disorder, unspecified; F19.24 Other psychoactive substance dependence with psychoactive substance-induced mood disorder; F19.282 Other psychoactive substance dependence with psychoactive substance-induced sleep disorder; F39 Unspecified mood [affective] disorder; Z87.42 Personal history of other diseases of the female genital tract
CPT/HCPCS: 36415; 81003; 86803; 87389